=== PATIENT | male | born 1965 | race Caucasian/White ===

== ENCOUNTER → 2021-06-01 | Outpatient (CLI) | payer OTHER ==
[~2021-06-01] MED LIST: ERYTHROMYCIN O3.5 GM OU; PREDNISONE20 MG PO; VALACYCLOVIR1000 MG PO
== END ==
LOC: KOH-I 10:00
DX: M51.16 Intervertebral disc disorders with radiculopathy, lumbar region (principal); G89.29 Other chronic pain
CPT/HCPCS: 72131

== ENCOUNTER → 2021-06-07 | Outpatient (CLI) | payer OTHER ==
[~2021-06-07] MED LIST changes: +ENDOCET 10-3251 EACH PO; +LANTUS SOL100 UNIT/1 SQ; +LISINOPRIL10 MG PO
[2021-06-07 10:42] LABS: HEMOGLOBIN 15.6 gm/dl (14.0-17.5); RED BLOOD COUNT 5.26 M/UL (4.20-5.50); WHITE BLOOD COUNT 8.8 K/UL (4.5-11.0)
[2021-06-07 11:01] LABS: BUN/CREATININE RATIO 14 (0-10)
== END ==
LOC: OPSV2 09:50 → EDSTATUS 10:00 → OPSV2 10:00
PROVIDERS: Orthopaedic Surgery
DX: Z01.818 Encounter for other preprocedural examination (principal); M51.16 Intervertebral disc disorders with radiculopathy, lumbar region
CPT/HCPCS: 71046; 80048; 81001; 83036; 85025; 87081; 93005

== ENCOUNTER → 2021-06-13 | Outpatient (CLI) | payer OTHER ==
[2021-06-13 15:11] LABS: BUN/CREATININE RATIO 18 (0-10)
== END ==
LOC: LAB 13:56
PROVIDERS: Orthopaedic Surgery
DX: Z01.812 Encounter for preprocedural laboratory examination (principal); M51.16 Intervertebral disc disorders with radiculopathy, lumbar region; M48.061 Spinal stenosis, lumbar region without neurogenic claudication
CPT/HCPCS: 36415; 80048; 85610; 85730; 86850; 86900; 86901

== ENCOUNTER 2021-06-14 05:55 | Inpatient (IN) | payer OTHER ==
[~2021-06-14] VITALS: Ht 175.3 cm; Wt 106.6 kg
[2021-06-14 14:01] LABS: HEMOGLOBIN 13.2 gm/dl (14.0-17.5); RED BLOOD COUNT 4.31 M/UL (4.20-5.50); WHITE BLOOD COUNT 11.2 K/UL (4.5-11.0)
[2021-06-14 14:18] LABS: BUN/CREATININE RATIO 15 (0-10)
[2021-06-15 05:12] LABS: HEMOGLOBIN 12.5 gm/dl (14.0-17.5); RED BLOOD COUNT 4.03 M/UL (4.20-5.50); WHITE BLOOD COUNT 11.4 K/UL (4.5-11.0)
[2021-06-15 05:40] LABS: BUN/CREATININE RATIO 16 (0-10)
[2021-06-16 05:20] LABS: HEMOGLOBIN 12.2 gm/dl (14.0-17.5); RED BLOOD COUNT 4.04 M/UL (4.20-5.50)
[2021-06-16 05:52] LABS: BUN/CREATININE RATIO 17 (0-10)
[2021-06-16] MEDS ORDERED: BETADINE30 ML OP (10:09)
== END 2021-06-16 12:46 | disposition home or self-care (01) | DRG 455 ==
LOC: OR 05:55 → CDU 16:50 → CCU 17:40 → M/S 06-16 08:27
PROVIDERS: ADMIT Orthopaedic Surgery
PROC: 0SG3071 Fusion of Lumbosacral Joint with Autologous Tissue Substitute, Posterior Approach, Posterior Column, Open Approach (ICD-10-PCS; 2021-06-14)
PROC: 01NB0ZZ Release Lumbar Nerve, Open Approach (ICD-10-PCS; 2021-06-14)
PROC: 01NR0ZZ Release Sacral Nerve, Open Approach (ICD-10-PCS; 2021-06-14)
PROC: 4A11X4G Monitoring of Peripheral Nervous Electrical Activity, Intraoperative, External Approach (ICD-10-PCS; 2021-06-14)
PROC: 0SG30AJ Fusion of Lumbosacral Joint with Interbody Fusion Device, Posterior Approach, Anterior Column, Open Approach (ICD-10-PCS; principal; 2021-06-14 09:00)
DX: M48.061 Spinal stenosis, lumbar region without neurogenic claudication (principal); M54.16 Radiculopathy, lumbar region; M51.87 Other intervertebral disc disorders, lumbosacral region; M51.36 Other intervertebral disc degeneration, lumbar region; Z20.822 Contact with and (suspected) exposure to COVID-19; I10 Essential (primary) hypertension; E11.9 Type 2 diabetes mellitus without complications; K44.9 Diaphragmatic hernia without obstruction or gangrene; E11.40 Type 2 diabetes mellitus with diabetic neuropathy, unspecified; Z83.3 Family history of diabetes mellitus; Z82.49 Family history of ischemic heart disease and other diseases of the circulatory system; Z87.891 Personal history of nicotine dependence; Z88.0 Allergy status to penicillin; Z88.2 Allergy status to sulfonamides; Z98.890 Other specified postprocedural states; Z88.6 Allergy status to analgesic agent; Z79.4 Long term (current) use of insulin
CPT/HCPCS: 36415; 72100; 72110; 76000; 80048; 82962; 85007; 85027; 97161; 97166; 97535; C1713; C1762; J0690; J1040; J1100; J1170; J2001; J2250; J2370; J2405; J2550; J2704; J2710; J3010; J3370; J7040; J7120